=== PATIENT | female | born 1960 | race Caucasian/White ===

== ENCOUNTER 2018-07-25 09:59 | Outpatient (CLI) | payer OTHER ==
--- NOTE | 2018-07-26 09:04 | Mammography Report ---
Reason: SCREENING MAMMO Procedure Date: 07/25/2018 Accession Number: [id number] / [id number] Procedure: JANEL - Screening Mammo w/Chan CPT Code: FULL RESULT: EXAM: Screening Mammo w/Chan DATE: 07/25/2018 10:19 AM CLINICAL HISTORY: Screening encounter. History of late childbearing and family history of breast cancer in the mother at age 50. TECHNIQUE: Bilateral CC and MLO views were obtained. COMPARISON: 01/30/2013 through 11/01/2010. FINDINGS: The breasts demonstrate scattered fibroglandular densities bilaterally. A typically benign skin calcification is seen in the right breast. No suspicious masses, clustered microcalcifications, or regions of architectural distortion are identified. IMPRESSION: Benign findings RECOMMENDATION: Routine annual screening unless otherwise clinically indicated. BIRADS CATEGORY 2: Benign findings STANDARD QUALIFYING STATEMENTS: 1. This examination was not reviewed with the aid of Computer-Aided Detection (CAD). 2. A negative or benign imaging report should not preclude biopsy if clinically suspicious findings are present. 3. Dense breasts may obscure an underlying neoplasm. 4. This examination was reviewed with the aid of 3D breast imaging (tomosynthesis).
== END 2018-07-25 10:00 | disposition home or self-care (01) ==
LOC: DI 09:59
DX: Z12.31 Encounter for screening mammogram for malignant neoplasm of breast (principal); Z80.3 Family history of malignant neoplasm of breast
CPT/HCPCS: 77063; 77067

== ENCOUNTER 2019-04-17 17:14 | Outpatient (CLI) | payer BC | END 2019-04-17 17:15 | disposition critical access hospital (66) | LOC: EMS 17:14 | PROVIDERS: ATTEND Surgery | DX: S09.90XA Unspecified injury of head, initial encounter (principal); R41.82 Altered mental status, unspecified; S51.011A Laceration without foreign body of right elbow, initial encounter; V19.9XXA Pedal cyclist (driver) (passenger) injured in unspecified traffic accident, initial encounter; Y93.55 Activity, bike riding; Y92.414 Local residential or business street as the place of occurrence of the external cause ==

== ENCOUNTER 2019-04-17 17:24 | Observation (INO) | payer BC, OTHER ==
[2019-04-17] MEDS ORDERED: TETANUS/DIPHTHERIA/PERTUSSIS 0.5 ML SYRINGE IM ONE (17:33)
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
[2019-04-17] MEDS ORDERED: fentaNYL 100 MCG/2 ML VIAL IVP STA (17:41)
[2019-04-17 17:43] LABS: BASOPHILS % (AUTO) 0.5 %; EOSINOPHILS # (AUTO) 0.1 10^3/uL (0.0-0.7); EOSINOPHILS % (AUTO) 1.1 %; HGB - HEMOGLOBIN 15.1 g/dL (12.0-16.0); LYMPHOCYTES # (AUTO) 3.4 10^3/uL (1.5-3.5); LYMPHOCYTES % (AUTO) 52.5 %; MEAN CORPUSCULAR HEMOGLOBIN 33.6 pg (27.0-31.0); MEAN CORPUSCULAR HGB CONC 34.6 g/dL (32.0-36.0); MEAN CORPUSCULAR VOLUME 97.1 fL (81.0-99.0); MEAN PLATELET VOLUME 10.4 fL (7.9-10.8); MONOCYTES # (AUTO) 0.4 10^3/uL (0.0-1.0); MONOCYTES % (AUTO) 6.7 %; NEUTROPHILS # (AUTO) 2.5 10^3/uL (1.5-6.6); NEUTROPHILS % (AUTO) 38.7 %; PLT - PLATELET COUNT 210 10^3/uL (130-450); WHITE BLOOD COUNT 6.4 x10^3/uL (4.8-10.8)
[2019-04-17 17:52] LABS: PT - PROTHROMBIN TIME 11.2 secs (9.9-12.6)
[2019-04-17 17:54] LABS: ALBUMIN 4.7 g/dL (3.2-5.5); ALBUMIN/GLOBULIN RATIO 1.7 (1.0-2.2); BILIRUBIN,TOTAL 0.7 mg/dL (0.2-1.0); CREATININE 0.6 mg/dL (0.4-1.0); TOTAL PROTEIN 7.4 g/dL (6.7-8.2)
[2019-04-17] MEDS ORDERED: ONDANSETRON 4 MG/2 ML VIAL IVP STA ×2 (18:17→18:39)
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
[2019-04-17] MEDS ORDERED: BACITRACIN OINT TOP ONE ×3 (19:25→19:36)
[2019-04-17] MEDS ORDERED: METOCLOPRAMIDE 10 MG/2 ML VIAL IVP STA (19:28)
[2019-04-17] MEDS ORDERED: SODIUM CHLORIDE FLUSH 0.9% 10 ML SYRINGE IVP PRN (20:42)
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
[2019-04-17] MEDS ORDERED: LACTATED RINGERS 1,000 ML IV SCH (21:00)
[2019-04-17] MEDS: KETOROLAC 30 MG/ML VIAL IVP PRN (22:16)
[2019-04-17] MEDS ORDERED: ONDANSETRON 4 MG/2 ML VIAL IVP PRN (22:29)
[2019-04-17] MEDS ORDERED: POTASSIUM CHLORIDE 20 MEQ TABLET PO ONE (22:41)
[2019-04-17] MEDS: ACETAMINOPHEN 325 MG TABLET PO PRN (23:54)
[2019-04-18] MEDS ORDERED: SODIUM CHLORIDE FLUSH 0.9% 10 ML SYRINGE IVP SCH (01:00)
[2019-04-18 05:08] LABS: ALBUMIN/GLOBULIN RATIO 1.7 (1.0-2.2); BILIRUBIN,TOTAL 0.9 mg/dL (0.2-1.0); CALCIUM 9.1 mg/dL (8.5-10.3); CREATININE 0.6 mg/dL (0.4-1.0); TOTAL PROTEIN 6.4 g/dL (6.7-8.2)
[2019-04-18 05:17] LABS: BASOPHILS % (AUTO) 0.3 %; LYMPHOCYTES % (AUTO) 10.2 %; MEAN CORPUSCULAR HEMOGLOBIN 33.9 pg (27.0-31.0); MEAN CORPUSCULAR HGB CONC 34.1 g/dL (32.0-36.0); MEAN CORPUSCULAR VOLUME 99.5 fL (81.0-99.0); MEAN PLATELET VOLUME 10.8 fL (7.9-10.8); MONOCYTES # (AUTO) 0.5 10^3/uL (0.0-1.0); MONOCYTES % (AUTO) 5.2 %; NEUTROPHILS # (AUTO) 7.8 10^3/uL (1.5-6.6); NEUTROPHILS % (AUTO) 83.9 %; PLT - PLATELET COUNT 173 10^3/uL (130-450); RED BLOOD COUNT 3.83 10^6/uL (4.20-5.40); RED CELL DISTRIBUTION WIDTH 11.7 % (12.0-15.0); WHITE BLOOD COUNT 9.3 x10^3/uL (4.8-10.8)
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
[2019-04-18] MEDS: ACETAMINOPHEN 325 MG TABLET PO PRN (07:34)
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
[2019-04-18] MEDS: KETOROLAC 30 MG/ML VIAL IVP PRN (08:01)
[2019-04-18] MEDS ORDERED: BACITRACIN ZINC OINT 14 GM TOP SCH (09:00)
[2019-04-18] MEDS ORDERED: BACITRACIN OINT TOP SCH (09:00)
[2019-04-18 09:04] VITALS: BP 115/79
== END 2019-04-18 09:49 | disposition home or self-care (01) ==
LOC: EDUNIT# → ED 17:24 → ICU 20:42
PROVIDERS: ADMIT Internal Medicine Gastroenterology; ATTEND Internal Medicine Gastroenterology
DX: S06.0X1A Concussion with loss of consciousness of 30 minutes or less, initial encounter (principal); V19.9XXA Pedal cyclist (driver) (passenger) injured in unspecified traffic accident, initial encounter; S60.511A Abrasion of right hand, initial encounter; S00.81XA Abrasion of other part of head, initial encounter; S70.211A Abrasion, right hip, initial encounter; S80.212A Abrasion, left knee, initial encounter; S80.211A Abrasion, right knee, initial encounter; M25.511 Pain in right shoulder; T14.8XXA Other injury of unspecified body region, initial encounter
CPT/HCPCS: 36415; 70450; 70486; 71045; 72125; 73030; 73080; 73130; 80053; 83690; 85025; 85610; 87150; 90471; 90715; 96361; 96374; 96375; 96376; 99285; A9270; G0378; J2765; J7120

== ENCOUNTER 2020-08-05 13:26 | Outpatient (CLI) | payer BC ==
--- NOTE | 2020-08-06 05:37 | Mammography Report ---
BILATERAL DIGITAL SCREENING MAMMOGRAM 3D/2D: 08/05/2020 CLINICAL: Routine screening. Comparison is made to exams dated: 07/25/2018 mammogram, 01/30/2013 mammogram, and 11/01/2010 mammogram - [facility]. There are scattered fibroglandular elements in both breasts. No significant masses, calcifications, or other findings are seen in either breast. There has been no significant interval change. IMPRESSION: NEGATIVE There is no mammographic evidence of malignancy. A 1 year screening mammogram is recommended. This exam was interpreted at Station ID: [id number]. NOTE: For mammograms, a report in lay terms will be sent to the patient. Approximately 15% of breast malignancies will not be visualized mammographically. In the management of a palpable breast mass, a negative mammogram must not discourage biopsy of a clinically suspicious lesion. Electronically Signed By: Angelito Sweet acr/penrad:08/05/2020 14:35:03 ACR BI-RADS Category 1: Negative 3341F PARENCHYMAL PATTERN: (A) - The breast(s) demonstrate(s) scattered fibroglandular densities. BI-RADS CATEGORY: (1) - 1 RECOMMENDATION: (ANNUAL) - Recommend routine annual screening mammography. [id number] 1 year screening LATERALITY: (B)
== END 2020-08-05 13:27 | disposition home or self-care (01) ==
LOC: DI 13:26
DX: Z12.31 Encounter for screening mammogram for malignant neoplasm of breast (principal)
CPT/HCPCS: 77067

== ENCOUNTER 2020-08-18 08:39 | Outpatient (CLI) | payer BC ==
[2020-08-18 08:52] LABS: BASOPHILS % (AUTO) 0.7 %; EOSINOPHILS # (AUTO) 0.3 10^3/uL (0.0-0.7); HGB - HEMOGLOBIN 14.1 g/dL (12.0-16.0); LYMPHOCYTES # (AUTO) 1.3 10^3/uL (1.5-3.5); LYMPHOCYTES % (AUTO) 29.8 %; MEAN CORPUSCULAR HEMOGLOBIN 35.1 pg (27.0-31.0); MEAN CORPUSCULAR HGB CONC 34.6 g/dL (32.0-36.0); MEAN CORPUSCULAR VOLUME 101.5 fL (81.0-99.0); MEAN PLATELET VOLUME 10.2 fL (7.9-10.8); MONOCYTES # (AUTO) 0.3 10^3/uL (0.0-1.0); MONOCYTES % (AUTO) 6.7 %; NEUTROPHILS # (AUTO) 2.5 10^3/uL (1.5-6.6); NEUTROPHILS % (AUTO) 55.6 %; PLT - PLATELET COUNT 159 10^3/uL (130-450); RED BLOOD COUNT 4.02 10^6/uL (4.20-5.40); RED CELL DISTRIBUTION WIDTH 11.9 % (12.0-15.0); WHITE BLOOD COUNT 4.5 x10^3/uL (4.8-10.8)
[2020-08-18 09:11] LABS: ALBUMIN 4.5 g/dL (3.2-5.5); ALBUMIN/GLOBULIN RATIO 1.9 (1.0-2.2); ALKALINE PHOSPHATASE 51 IU/L (42-121); ALT ALANINE AMINOTRANSFERASE 22 IU/L (10-60); AST ASPARTATE AMINOTRANSFERASE 24 IU/L (10-42); BILIRUBIN,TOTAL 0.7 mg/dL (0.2-1.0); BUN - BLOOD UREA NITROGEN 9 mg/dL (6-20); CALCIUM 9.2 mg/dL (8.5-10.3); CARBON DIOXIDE - CO2 27 mmol/L (21-32); CHLORIDE 102 mmol/L (101-111); CHOL/HDL RATIO 3.8 (<4.4); CHOLESTEROL 250 mg/dL; CREATININE 0.6 mg/dL (0.4-1.0); GLUCOSE 101 mg/dL (70-100); HDL CHOLESTEROL 65 mg/dL; LDL CHOLESTEROL,CALCULATED 167 mg/dL; LDL/HDL RATIO 2.6 (<4.4); SODIUM 139 mmol/L (135-145); TOTAL PROTEIN 6.9 g/dL (6.7-8.2); VLDL CHOLESTEROL 18 mg/dL
== END 2020-08-18 08:40 | disposition home or self-care (01) ==
LOC: LAB 08:39
PROVIDERS: ATTEND Physician Assistant Medical
DX: Z00.00 Encounter for general adult medical examination without abnormal findings (principal)
CPT/HCPCS: 36415; 80053; 80061; 83721; 84443; 85025

== ENCOUNTER 2020-08-19 08:32 | Outpatient (CLI) | payer BC ==
--- NOTE | 2020-08-19 10:37 | DEXA Report ---
PROCEDURE: Dexa Spine and/or Hip INDICATIONS: POST MENOPAUSAL TECHNIQUE: Dual energy x-ray absorptiometry (DXA) was performed on a [facility], [place] System. Regions measur ed are the AP Spine, femoral neck, and if needed forearm. COMPARISON: None. FINDINGS: Lumbar Spine: Bone Mineral Density 1.092 g/cm/cm,T score -0.7, normal Left Hip: Bone Mineral Density 0.923 g/cm/cm,T score -0.7, normal Left Femoral Neck: Bone Mineral Density 0.935 g/cm/cm, T score -0.7, normal (T score greater or equal to -1.0: NORMAL) (T score from -1.1 to -2.4: OSTEOPENIA) (T score less than or equal to -2.5 to: OSTEOPOROSIS) Impression: 1. Normal bone mineral density. 2. No increased risk of fracture. Patients with diagnosis of osteoporosis or osteopenia should have regular bone mineral density assess ment. For those eligible for Medicare, routine testing is allowed once every 2 years. Testing frequ ency can be increased for patients who have rapidly progressing disease or for those who are receivin g medical therapy to restore bone mass. Reviewed by: Arlyn Emmanuel MD on 08/19/2020 10:36 AM PST Approved by: Arlyn Emmanuel MD on 08/19/2020 10:36 AM PST Station ID: [id number]
== END 2020-08-19 08:33 | disposition home or self-care (01) ==
LOC: DI 08:32
PROVIDERS: ATTEND Physician Assistant Medical
DX: Z78.0 Asymptomatic menopausal state (principal)

== ENCOUNTER 2022-06-28 13:46 | Outpatient (CLI) | payer OTHER ==
--- NOTE | 2022-06-29 16:42 | Mammography Report ---
BILATERAL DIGITAL SCREENING MAMMOGRAM 3D/2D: 06/28/2022 CLINICAL: Routine screening. Comparison is made to exams dated: 08/05/2020 mammogram, 07/25/2018 mammogram, 01/30/2013 mammogram, a nd 11/01/2010 mammogram - [facility]. There are scattered areas of fibroglandular density in both breasts (category b / 25%-50% glandular t issue). No significant masses, calcifications, or other findings are seen in either breast. There has been no significant interval change. IMPRESSION: NEGATIVE There is no mammographic evidence of malignancy. A 1 year screening mammogram is recommended. This exam was interpreted at Station ID: [id number]. NOTE: For mammograms, a report in lay terms will be sent to the patient. Approximately 15% of breast malignancies will not be visualized mammographically. In the management of a palpable breast mass, a negative mammogram must not discourage biopsy of a clinically suspicious lesion. Electronically Signed By: Kurt espinoza/sharri:06/28/2022 16:35:08 ACR BI-RADS Category 1: Negative 3341F PARENCHYMAL PATTERN: (A) - The breast(s) demonstrate(s) scattered fibroglandular densities. BI-RADS CATEGORY: (1) - 1 RECOMMENDATION: (ANNUAL) - Recommend routine annual screening mammography. [id number] 1 year screening LATERALITY: (B)
== END 2022-06-28 13:47 | disposition home or self-care (01) ==
LOC: DI 13:46
DX: Z12.31 Encounter for screening mammogram for malignant neoplasm of breast (principal)

== ENCOUNTER 2024-03-17 11:29 | Outpatient (CLI) | payer OTHER ==
--- NOTE | 2024-03-18 10:16 | Mammography Report ---
BILATERAL DIGITAL SCREENING MAMMOGRAM 3D/2D: 03/17/2024 CLINICAL: Routine screening. Comparison is made to exams dated: 06/28/2022 mammogram and 08/05/2020 mammogram - [facility]. There are scattered areas of fibroglandular density in both breasts (category b / 25%-50% glandular t issue). No significant masses, calcifications, or other findings are seen in either breast. There has been no significant interval change. IMPRESSION: NEGATIVE There is no mammographic evidence of malignancy. A 1 year screening mammogram is recommended. Based on the Tyrer Cuzick model (a risk assessment model) the patient's lifetime risk is 18.9% and he r 10 year risk is 8.2%. According to the ACR, ACS, and NCCN guidelines, an annual breast MRI exam ruby ng with mammogram is recommended if the patient's lifetime risk is 20% or greater. This exam was interpreted at Station ID: [id number]. NOTE: For mammograms, a report in lay terms will be sent to the patient. Approximately 15% of breast malignancies will not be visualized mammographically. In the management of a palpable breast mass, a negative mammogram must not discourage biopsy of a clinically suspicious lesion. Electronically Signed By: Yoshi garcia/sharri:03/17/2024 12:07:44 letter sent: No_Letter ACR BI-RADS Category 1: Negative 3341F PARENCHYMAL PATTERN: (A) - The breast(s) demonstrate(s) scattered fibroglandular densities. BI-RADS CATEGORY: (1) - 1 RECOMMENDATION: (ANNUAL) - Recommend routine annual screening mammography. [id number] 1 year screening LATERALITY: (B)
== END 2024-03-17 11:30 | disposition home or self-care (01) ==
LOC: DI 11:29
DX: Z12.31 Encounter for screening mammogram for malignant neoplasm of breast (principal); R92.323 Mammographic fibroglandular density, bilateral breasts